=== PATIENT | female | born 1950 | race Caucasian/White ===

== ENCOUNTER 2021-02-04 12:28 | Outpatient (CLI) | payer MEDICARE ==
[2021-02-05 11:22] LABS: SARS-CoV-2 PCR by NAA Not Detected (NotDetected)
== END 2021-02-04 12:29 | disposition home or self-care (01) ==
LOC: CSHLAB 12:28
PROVIDERS: ATTEND Internal Medicine Pulmonary Disease
DX: Z20.822 Contact with and (suspected) exposure to COVID-19 (principal)
CPT/HCPCS: U0003; U0005

== ENCOUNTER 2021-02-09 14:47 | Outpatient (CLI) | payer MEDICARE | END 2021-02-09 14:48 | disposition home or self-care (01) | LOC: CSHCP 14:47 | PROVIDERS: ATTEND Internal Medicine Pulmonary Disease | DX: R06.02 Shortness of breath (principal); J44.9 Chronic obstructive pulmonary disease, unspecified | CPT/HCPCS: 94060; 94726; 94729; 94760 ==